=== PATIENT | female | born 1945 | race Hispanic/Latino ===

== ENCOUNTER 2018-03-01 19:33 | Emergency (ER) | payer MEDICARE ==
[2018-03-01 19:47] VITALS: BMI 31.3
--- NOTE | 2018-03-01 20:03 | ED PDOC ---
Arrival/HPI - General Chief Complaint: Trauma Time Seen by Provider: 03/01/18 19:57 Historian: Patient - History of Present Illness Narrative History of Present Illness (Text): 03/01/18 19:57 72 y/o female, pmh including htn/dm, penicillin allergy, taking aspirin, last tetanus under 6 years ago, c/o head/rt. elbow/rt. rib injury x 3 hours. Pt. stated that she was walking down the stair, slipped, landed on the rt. elbow and rt. sided head and fall to the rt. rib cage, not much rib pain but mostly headache and rt. elbow pain, no numbness or tingling, no LOC, no cardiopulmonary complaints prior to the mechanical fall, no numbness or tingling, no chest pain or shortness of breath, no other medical or psychological complaints. Past Medical History - Provider Review Nursing Documentation Reviewed: Yes - Infectious Disease Hx of Infectious Diseases: None - Cardiac Hx Pacemaker: No - Neurological Hx Paralysis: No - Endocrine/Metabolic Hx Diabetes Mellitus Type 2: Yes - Hematological/Oncological Hx Blood Transfusions: No Hx Blood Transfusion Reaction: No - Musculoskeletal/Rheumatological Hx Musculoskeletal Disorders: No - Psychiatric Hx Emotional Abuse: No Hx Physical Abuse: No Hx Substance Use: No - Anesthesia Hx Anesthesia Reactions: No Hx Malignant Hyperthermia: No - Suicidal Assessment Feels Threatened In Home Enviroment: No Family/Social History - Physician Review Nursing Documentation Reviewed: Yes Family/Social History: Unknown Family HX Smoking Status: Never Smoked Hx Alcohol Use: No Hx Substance Use: No Allergies/Home Meds Allergies/Adverse Reactions: Allergies Penicillins Allergy (Verified 08/10/15 09:30) ANAPHYLAXIS Home Medications: Home Meds Medication Instructions Recorded Confirmed Aspirin [Ecotrin] 81 mg PO DAILY 08/10/15 03/01/18 MetFORMIN [glucoPHAGE] 1,000 mg PO DAILY 08/10/15 03/01/18 Nebivolol [Bystolic] 10 mg PO QPM 08/10/15 03/01/18 Triamterene/Hydrochlorothiazid 1 each PO DAILY 08/10/15 03/01/18 [Triamterene-Hctz 37.5-25 mg Cp] Review of Systems - Review of Systems Constitutional: absent: Fatigue, Fevers Eyes: absent: Vision Changes ENT: absent: Hearing Changes Respiratory: absent: SOB, Cough Cardiovascular: absent: Chest Pain Gastrointestinal: absent: Abdominal Pain, Diarrhea, Nausea, Vomiting Musculoskeletal: Arthralgias. absent: Back Pain, Neck Pain, Joint Swelling, Myalgias Skin: absent: Rash, Pruritis Neurological: Headache. absent: Dizziness, Focal Weakness, Gait Changes, Speech Changes Endocrine: absent: Diaphoresis Psychiatric: absent: Anxiety, Depression, Suicidal Ideation Physical Exam Vital Signs Reviewed: Yes Vital Signs Temp Pulse Resp BP Pulse Ox 03/01/18 19:47 97.8 F 68 18 195/83 H 100 Temperature: Afebrile Blood Pressure: Hypertensive Pulse: Regular Respiratory Rate: Normal Appearance: Positive for: Well-Appearing, Non-Toxic, Comfortable Pain Distress: Mild Mental Status: Positive for: Alert and Oriented X 3 - Systems Exam Head: No: Tenderness (rt. lateral parietal), Contusion, Swelling, Ecchymosis, Abrasion, Laceration, Other Pupils: Present: PERRL Extroacular Muscles: Present: EOMI Conjunctiva: Present: Normal Ears: Present: NORMAL TM, Normal Canal Mouth: Present: Moist Mucous Membranes Pharnyx: No: ERYTHEMA, EXUDATE, TONSILS ENLARGED Nose (External): Present: Atraumatic. No: Abrasion, Contusion, Laceration Nose (Internal): Present: Normal Inspection, No Active Bleeding. No: Rhinorrhea, Septal Hematoma, Epistaxis Neck: Present: Normal Range of Motion, Trachea Midline. No: Meningeal Signs, MIDLINE TENDERNESS, Paraspinal Tenderness, Lymphadenopathy Respiratory/Chest: Present: Clear to Auscultation, Good Air Exchange, Other (no ecchymosis). No: Respiratory Distress, Accessory Muscle Use, Wheezes, Decreased Breath Sounds, Rales, Retracting, Rhonchi, Tachypneic, Tender to Palpation Cardiovascular: Present: Regular Rate and Rhythm, Normal S1, S2. No: Murmurs Abdomen: No: Tenderness, Distention, Peritoneal Signs, Rebound, Guarding Back: Present: Normal Inspection. No: CVA Tenderness, Midline Tenderness, Paraspinal Tenderness, Pain with Leg Raise, Decubitus Ulcer Upper Extremity: Present: Normal Inspection, Normal ROM, NORMAL PULSES, Neurovascularly Intact, Capillary Refill < 2s, Norm 2-Pt Discrimination, Other (RUE: +ttp on the dorsum aspect of the elbow with no swelling, FROM without limitation, sensation intact, motor 5/5, +Radial pulse, capillary refill< 2 seconds, neurovascular intact, no scaphoid/shoulder/forearm/humerus/hand/finger tenderness or swelling. ). No: Cyanosis, Edema, Swelling, Erythema, Deformity Lower Extremity: Present: Normal Inspection, NORMAL PULSES, Normal ROM, Neurovascularly Intact, Capillary Refill < 2 s. No: Edema, CALF TENDERNESS, Tenderness, Swelling, Deformity Neurological: Present: GCS=15, CN II-XII Intact, Speech Normal Skin: Present: Warm, Dry, Normal Color. No: Rashes Psychiatric: Present: Alert, Oriented x 3, Normal Insight, Normal Concentration Medical Decision Making ED Course and Treatment: 03/01/18 20:13 -CT head -Chest/rt. rib/elbow xrays -Tylenol -Observe and reassess 03/01/18 21:43 -CT Head: 1. There is generalized parenchymal atrophy noted as demonstrated by symmetrical dilatation of ventricles and sulci. 2. Chronic periventricular and subcortical microvascular disease is seen. 3. No acute intracranial pathology. -Rt. rib/chest xray: ER wet read: no fracture/pneumothorax -Rt. elbow xray: ER wet read: no fracture/dislocation, mild swelling dorsally. -Sling applied with neurovascular intact. -Pain improved, discussed about all results, sling. -Discharge home with lidoderm patch, tylenol, sling, ice compression follow up with your own pmd and orthopedic within 2 days, return to the ER for any new or worsening signs or symptoms. - RAD Interpretation Radiology Orders: -CT Head: TECHNIQUE: Axial computed tomography images of the head/brain without intravenous contrast. 1122.39 mGy-cm COMPARISON: None provided. FINDINGS: BRAIN Chronic periventricular and subcortical microvascular disease is seen. VENTRICLES: There is generalized parenchymal atrophy noted as demonstrated by symmetrical dilatation of ventricles and sulci. ORBITS: The orbits are unremarkable. SINUSES AND MASTOIDS: The paranasal sinuses and mastoid air cells are clear. BONES: No fracture. MISCELLANEOUS: No acute intracranial pathology. IMPRESSION: 1. There is generalized parenchymal atrophy noted as demonstrated by symmetrical dilatation of ventricles and sulci. 2. Chronic periventricular and subcortical microvascular disease is seen. 3. No acute intracranial pathology. Electronically signed on Mar 01, 2018 9:33:10 PM EDT by: Segundo Chisholm M.D., ADINA Certified By ABR & [facility] - -Rt. rib/chest xray: no right rib fracture, unremarkable radiographs of the right ribs and chest. -Rt. elbow xray: soft tissue swelling with acute articular or osseous abnormality. Tobacco Sprayer: Radiologist - PA / TRAFFIC REPRESENTATIVE / Resident Statement / has reviewed & agrees with the documentation as recorded. Disposition/Present on Arrival - Present on Arrival Any Indicators Present on Arrival: No History of DVT/PE: No History of Uncontrolled Diabetes: No Urinary Catheter: No History of Decub. Ulcer: No History Surgical Site Infection Following: None - Disposition Have Diagnosis and Disposition been Completed?: Yes Diagnosis: Fall, Elbow pain, right, Arthralgia Disposition: HOME/ ROUTINE Disposition Time: 21:45 Patient Plan: Discharge Condition: IMPROVED Additional Instructions: -Discharge home with lidoderm patch, tylenol, sling, ice compression follow up with your own pmd and orthopedic within 2 days, return to the ER for any new or worsening signs or symptoms. Prescriptions: Acetaminophen [Tylenol 325mg tab] 2 tab PO QID PRN #35 tab PRN Reason: Other Lidocaine 5% [Lidoderm] 1 each TP DAILY PRN #21 patch PRN Reason: Other Referrals: Kunal Lynn MD [Primary Care Provider] - Follow up with primary Ki Barnes DO [Staff Provider] - Follow up with primary Forms: [employer] (Slovak), WORK NOTE
[2018-03-01] MEDS ORDERED: Lidocaine 5% Patch TD STA (21:43)
[2018-03-01 21:52] VITALS: BP 143/70; PULSE 63; RESP 18; O2SAT 99
[2018-03-01 22:01] VITALS: TEMP 98
--- NOTE | 2018-03-02 10:16 | CT ---
Date of service: 03/01/2018 PROCEDURE: CT HEAD WITHOUT CONTRAST. HISTORY: Head injury/trauma COMPARISON: None available. TECHNIQUE: Axial computed tomography images were obtained through the head/brain without intravenous contrast. Supplemental Coronal and Sagittal projections created and reviewed. Radiation dose: Total exam DLP = 1122.39 mGy-cm. This CT exam was performed using one or more of the following dose reduction techniques: Automated exposure control, adjustment of the mA and/or kV according to patient size, and/or use of iterative reconstruction technique. FINDINGS: HEMORRHAGE: No intracranial hemorrhage. BRAIN: No mass effect or edema. Cortical and cerebellar atrophy, periventricular small vessel disease. VENTRICLES: Unremarkable. No hydrocephalus. CALVARIUM: No acute findings. Evidence of hyperostosis frontalis. PARANASAL SINUSES: Unremarkable as visualized. No significant inflammatory changes. MASTOID AIR CELLS: Unremarkable as visualized. No inflammatory changes. OTHER FINDINGS: None. IMPRESSION: No acute intracranial abnormalities. No significant findings to account for the clinical presentation. Additional benign and/or incidental findings described above. Concordant results (preliminary interpretation) provided by [employer]. Procedure Completed: 20:31. Preliminary Report: Dictated and Authenticated: 21:33. Final Interpretation: 10:12. March 02, 2018
--- NOTE | 2018-03-02 10:30 | RAD ---
Date of service: 03/01/2018 PROCEDURE: Radiographs of the Chest and Right Ribs. HISTORY: fall, medical clearance COMPARISON: 08/13/2013. TECHNIQUE: Frontal radiograph of the chest and multiple oblique radiographs of the right ribs were obtained. FINDINGS: RIGHT RIBS: No fracture or focal lesion visualized. LUNGS: Clear. PLEURA: No pneumothorax or pleural fluid. CARDIOVASCULAR: Atherosclerotic calcifications identified primarily aortic arch. No radiographic findings to suggest acute or significant cardiovascular disease. OTHER FINDINGS: None. IMPRESSION: Unremarkable radiographs of the chest and right ribs. No right rib fracture. Concordant results with the preliminary interpretation rendered by the emergency department physician procedure.
--- NOTE | 2018-03-02 10:32 | RAD ---
Date of service: 03/01/2018 PROCEDURE: Radiographs of the right elbow. HISTORY: rt. elbow pain and injury COMPARISON: No prior. FINDINGS: BONES: No acute fracture. Evidence of prior trauma adjacent to the olecranon. This appears to be a well corticated osseous excrescence less than 1 mm. JOINTS: Normal. No osteoarthritis. SOFT TISSUES: Soft tissue swelling about the olecranon. None the less, the findings in the olecranon adjacent to this appear to be chronic. JOINT EFFUSION: None. OTHER FINDINGS: None. IMPRESSION: Soft tissue swelling without acute articular or osseous abnormality. Concordant results with the preliminary interpretation rendered by the emergency department physician procedure.
== END 2018-03-01 22:01 | disposition home or self-care (01) ==
LOC: ED 19:33
DX: M25.521 Pain in right elbow (principal); M25.50 Pain in unspecified joint; E11.9 Type 2 diabetes mellitus without complications; I10 Essential (primary) hypertension